=== PATIENT | female | born 1990 | race Caucasian/White ===

== ENCOUNTER 2020-06-18 01:03 | Emergency (ER) | payer OTHER ==
[2020-06-18] MEDS ORDERED: ASPIRIN 81 MG CHEWABLE TABLET ONE (02:01)
[2020-06-18] MEDS ORDERED: NA CHLORIDE 0.9% 500 ML ONE (02:01)
[2020-06-18] MEDS ORDERED: hydrOXYzine HCL 25 MG TAB ONE (02:01)
[2020-06-18 02:21] LABS: Absolute Lymphocytes (CBC) 2.3 K/uL (0.7-4.9); Basophils % 0.4 % (0-1.3); Hematocrit 42.1 % (36.0-45.0); Lymphocytes % 26.1 % (15.3-44.8); MPV 10.5 fL (7.6-11.3); RBC Red Blood Cell Count 4.53 M/uL (3.86-4.86)
[2020-06-18 02:34] LABS: ALT/SGPT 17 U/L (12-78); AST/SGOT 18 U/L (15-37); Albumin 3.8 g/dL (3.4-5.0); Alkaline Phosphatase 53 U/L (45-117); BUN Blood Urea Nitrogen 16 mg/dL (7-18); Bicarbonate 23 mmol/L (21-32); Bilirubin Direct 0.2 mg/dL (0-0.2); Bilirubin Total 0.6 mg/dL (0.2-1.0); Glucose Level 94 mg/dL (74-106); Magnesium 2.1 mg/dL (1.8-2.4); NT PRO-BNP 13 pg/mL (<125); Potassium 3.9 mmol/L (3.5-5.1); Protein, Total 7.3 g/dL (6.4-8.2); Sodium Level 138 mmol/L (136-145); Troponin (Emerg Dept Use Only) < 0.02 ng/mL (0.0-0.045)
--- NOTE | 2020-06-18 03:01 | EDPHYS ---
Physician Documentation [facility] Name: Jayda Avery Age: 29 yrs Sex: Female : 1990 Arrival Date: 06/18/2020 Time: 01:04 Bed 2 Private MD: ED Physician Osmany Traylor HPI: 06/18 01:40 This 29 yrs old Female presents to ER via Ambulatory with complaints of Chest kristin Pain. 01:40 The patient or guardian reports chest pain that is located primarily in the anterior kristin chest wall, left. The pain does not radiate. Associated signs and symptoms: Pertinent positives: palpitations, anxiety. The chest pain is described as aching. Duration: The patient or guardian reports a single episode, that is still ongoing, and unchanged. Modifying factors: The symptoms are alleviated by remaining still, the symptoms are aggravated by nothing. Severity of pain: At its worst the pain was very mild in the emergency department the pain is unchanged. The patient has not experienced similar symptoms in the past. 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 - Social history:: Smoking status: Patient denies any tobacco usage or history of. - Family history:: not pertinent. ROS: 01:40 Constitutional: Negative for fever, chills, and weight loss, Eyes: Negative for injury, kristin pain, redness, and discharge, ENT: Negative for injury, pain, and discharge, Neck: Negative for injury, pain, and swelling, Respiratory: Negative for shortness of breath, cough, wheezing, and pleuritic chest pain, Abdomen/GI: Negative for abdominal pain, nausea, vomiting, diarrhea, and constipation, Back: Negative for injury and pain, : Negative for injury, bleeding, discharge, and swelling, MS/Extremity: Negative for injury and deformity, Skin: Negative for injury, rash, and discoloration, Neuro: Negative for headache, weakness, numbness, tingling, and seizure, Psych: Negative for depression, anxiety, suicide ideation, homicidal ideation, and hallucinations, Allergy/Immunology: Negative for hives, rash, and allergies, Endocrine: Negative for neck swelling, polydipsia, polyuria, polyphagia, and marked weight changes, Hematologic/Lymphatic: Negative for swollen nodes, abnormal bleeding, and unusual bruising. 01:40 Cardiovascular: Positive for chest pain, of the chest. Exam: 01:40 Constitutional: This is a well developed, well nourished patient who is awake, alert, kristin and in no acute distress. Head/Face: Normocephalic, atraumatic. Eyes: Pupils equal round and reactive to light, extra-ocular motions intact. Lids and lashes normal. Conjunctiva and sclera are non-icteric and not injected. Cornea within normal limits. Periorbital areas with no swelling, redness, or edema. ENT: Nares patent. No nasal discharge, no septal abnormalities noted. Tympanic membranes are normal and external auditory canals are clear. Oropharynx with no redness, swelling, or masses, exudates, or evidence of obstruction, uvula midline. Mucous membranes moist. Neck: Trachea midline, no thyromegaly or masses palpated, and no cervical lymphadenopathy. Supple, full range of motion without nuchal rigidity, or vertebral point tenderness. No Meningismus. Chest/axilla: Normal chest wall appearance and motion. Nontender with no deformity. No lesions are appreciated. Cardiovascular: Regular rate and rhythm with a normal S1 and S2. No gallops, murmurs, or rubs. Normal PMI, no JVD. No pulse deficits. Respiratory: Lungs have equal breath sounds bilaterally, clear to auscultation and percussion. No rales, rhonchi or wheezes noted. No increased work of breathing, no retractions or nasal flaring. Abdomen/GI: Soft, non-tender, with normal bowel sounds. No distension or tympany. No guarding or rebound. No evidence of tenderness throughout. Back: No spinal tenderness. No costovertebral tenderness. Full range of motion. Skin: Warm, dry with normal turgor. Normal color with no rashes, no lesions, and no evidence of cellulitis. MS/ Extremity: Pulses equal, no cyanosis. Neurovascular intact. Full, normal range of motion. Neuro: Awake and alert, GCS 15, oriented to person, place, time, and situation. Cranial nerves II-XII grossly intact. Motor strength 5/5 in all extremities. Sensory grossly intact. Cerebellar exam normal. Normal gait. Psych: Awake, alert, with orientation to person, place and time. Behavior, mood, and affect are within normal limits. 01:40 Musculoskeletal/extremity: DVT Exam: No signs of deep vein thrombosis. no pain, no swelling, no tenderness, negative Homans' sign noted on exam, no appreciated bluish discoloration, no erythema, no increased warmth. 02:19 ECG was reviewed by the Attending Physician. kristin Vital Signs: 01:31 BP 131 / 85; Pulse 83; Resp 18; Temp 98.6; Pulse Ox 100% on R/A; Weight 92.99 kg; mg2 Height 5 ft. 4 in. (162.56 cm); 02:34 BP 122 / 75; Pulse 73; Resp 18; Pulse Ox 100% on R/A; mg2 01:31 Body Mass Index 35.19 (92.99 kg, 162.56 cm) mg2 MDM: 01:23 Patient medically screened. kristin 01:43 Differential diagnosis: abnormal EKG, anxiety, chest wall pain, costochondritis, kristin esophagitis, gastroesophageal reflux disease (GERD), pancreatitis, pleurisy, pulmonary embolus, stable angina, unstable angina. HEART Score: History: Slightly Suspicious (0), ECG: Normal (0), Age: < or = 45 years (0), Risk Factors: No Risk Factors Known (0), Troponin: < or = 1 x Normal Limit (0), Total Score = 0. The patient's deep vein thrombosis risk score was calculated as follows: Total Score: 0. This patient was found to be at low risk for a deep vein thrombosis by using the Well's assessment criteria. The patient's pulmonary embolism risk score was calculated as follows: Total Score: 3-6 points. This patient was found to be at moderate risk for a pulmonary embolism by using the Well's assessment criteria. INDRA Risk Score: TOTAL SCORE = 0. Data reviewed: vital signs, nurses notes, lab test result(s), EKG, radiologic studies, plain films. Data interpreted: compliance monitor: rate is 83 beats/min, Pulse oximetry: on room air is 100 %. Test interpretation: by ED physician or midlevel provider: ECG, plain radiologic studies. Counseling: I had a detailed discussion with the patient and/or guardian regarding: the historical points, exam findings, and any diagnostic results supporting the discharge/admit diagnosis, lab results, radiology results, the need for outpatient follow up, for definitive care, a test engineer, a family practitioner. 06/18 01:40 Order name: Basic Metabolic Panel; Complete Time: 02:[address] [facility] 06/18 01:40 Order name: CBC with Diff; Complete Time: 02:[address] [facility] 06/18 01:40 Order name: LFT's; Complete Time: 02:[address] [facility] 06/18 01:40 Order name: Magnesium; Complete Time: 02:[address] [facility] 06/18 01:40 Order name: NT PRO-BNP; Complete Time: 02:[address] [facility] 06/18 01:40 Order name: Troponin (emerg Dept Use Only); Complete Time: 02:[address] [facility] 06/18 01:40 Order name: XRAY Chest (1 view) 06/18 01:40 Order name: EKG; Complete Time: 01:[address] [facility] 06/18 01:40 Order name: D-Dimer; Complete Time: 02:[address] [facility] 06/18 03:05 Order name: Urine Dipstick--Ancillary (enter results) 06/18 03:05 Order name: Urine --Ancillary (enter results) 06/18 01:40 Order name: Cardiac monitoring; Complete Time: 01:[address] [facility] 06/18 01:40 Order name: EKG - Nurse/Tech; Complete Time: 01:[address] [facility] 06/18 01:40 Order name: IV Saline Lock; Complete Time: 01:[address] [facility] 06/18 01:40 Order name: Labs collected and sent; Complete Time: 01:[address] [facility] 06/18 01:40 Order name: O2 Per Protocol; Complete Time: 01:[address] [facility] 06/18 01:40 Order name: O2 Sat Monitoring; Complete Time: 01:[address] [facility] 06/18 01:40 Order name: Urine Dipstick-Ancillary (obtain specimen); Complete Time: 03:[address] [facility] 06/18 01:40 Order name: Urine Test (obtain specimen); Complete Time: 03:[address] [facility] EC:19 Rate is 83 beats/min. Rhythm is regular. QRS [place] is Normal. MA interval is normal. QRS kristin interval is normal. QT interval is normal. No Q waves. T waves are Normal. No ST changes noted. Clinical impression: Normal ECG and No evidence of ischemia. Interpreted by me. Reviewed by me. Administered Medications: 01:50 Drug: hydrOXYzine 25 mg Route: PO; ea 02:35 Follow up: Response: No adverse reaction mg2 01:51 Drug: NS 0.9% 500 ml Route: IV; Rate: bolus; Site: right forearm; ea 02:35 Follow up: Response: No adverse reaction; IV Status: Completed infusion; IV Intake: mg2 500ml 01:51 Drug: Aspirin Chewable Tablet 81 mg Route: PO; ea 02:35 Follow up: Response: No adverse reaction mg2 Disposition: 06/18/20 02:59 Discharged to Home. Impression: Other chest pain, Anxiety disorder, unspecified. - Condition is Stable. - Discharge Instructions: Panic Attacks, Nonspecific Chest Pain, Chest Wall Pain, Nonspecific Chest Pain, [id number], Panic Attacks, [id number], Aspirin and Your Heart. - Prescriptions for Hydroxyzine HCl 25 mg Oral Tablet - take 1 tablet by ORAL route every 6 hours As needed; 30 tablet. - Medication Reconciliation Form, Thank You Letter, Antibiotic Education, Prescription Opioid Use form. - Follow up: Private Physician; When: 2 - 3 days; Reason: Recheck today's complaints, Continuance of care, Re-evaluation by your physician. Follow up: Arturo Fish MD; When: 2 - 3 days; Reason: Recheck today's complaints, Re-evaluation by your physician. - Problem is new. - Symptoms have improved. Signatures: Dispatcher [employer] EDMS Robb Thurston RN RN sg Anderson, Corey, MD MD cha Antunez, Elena, RN RN ea Gardose, Michele, RN RN mg2 Corrections: (The following items were deleted from the chart) 03:14 02:59 06/18/2020 02:59 Discharged to Home. Impression: Other chest pain; Anxiety mg2 disorder, unspecified. Condition is Stable. Discharge Instructions: Panic Attacks, Nonspecific Chest Pain, Chest Wall Pain, Nonspecific Chest Pain, [id number], Panic Attacks, Egyu-no-Colc, Aspirin and Your Heart. Prescriptions for Hydroxyzine HCl 25 mg Oral Tablet - take 1 tablet by ORAL route every 6 hours As needed; 30 tablet. and Forms are Medication Reconciliation Form, Thank You Letter, Antibiotic Education, Prescription Opioid Use. Follow up: Private Physician; When: 2 - 3 days; Reason: Recheck today's complaints, Continuance of care, Re-evaluation by your physician. Follow up: Arturo Fish; When: 2 - 3 days; Reason: Recheck today's complaints, Re-evaluation by your physician. Problem is new. Symptoms have improved. kristin
--- NOTE | 2020-06-18 03:01 | ER ---
Nurse's Notes [facility] Name: Jayda Avery Age: 29 yrs Sex: Female : 1990 Arrival Date: 06/18/2020 Time: 01:04 Bed 2 Private MD: Diagnosis: Other chest pain;Anxiety disorder, unspecified Presentation: 06/18 01:24 Chief complaint: Patient states: Yesterday I went to see my PCP, because I was having sg some chest pain, well I got really anxious at the doctors office and then they said that things were fine. Tonight Im having that chest pain again and I cant tell if its from anxiety or if there is something else going on. Coronavirus screen: Client denies travel out of the [place] in the last 14 days. At this time, the client does not indicate any symptoms associated with coronavirus-19. Ebola Screen: Patient negative for fever greater than or equal to 101.5 degrees Fahrenheit, and additional compatible Ebola Virus Disease symptoms Patient denies exposure to infectious person. Patient denies travel to an Ebola-affected area in the 21 days before illness onset. No symptoms or risks identified at this time. Initial Sepsis Screen: Does the patient meet any 2 criteria? No. Patient's initial sepsis screen is negative. Does the patient have a suspected source of infection? No. Patient's initial sepsis screen is negative. Risk Assessment: Do you want to hurt yourself or someone else? Patient reports no desire to harm self or others. Onset of symptoms was June 18, 2020. Care prior to arrival: None. Transition of care: patient was not received from another setting of care. 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 - Social history:: Smoking status: Patient denies any tobacco usage or history of. - Family history:: not pertinent. Screenin:32 Abuse screen: Denies threats or abuse. Denies injuries from another. Nutritional mg2 screening: No deficits noted. Tuberculosis screening: No symptoms or risk factors identified. Fall Risk None identified. Assessment: 01:31 General: Appears in no apparent distress. comfortable, Behavior is calm, cooperative. mg2 Pain: Complains of pain in chest Pain does not radiate. Pain currently is 2 out of 10 on a pain scale. Quality of pain is described as aching, Pain began gradually. Neuro: Level of Consciousness is awake, alert, obeys commands, Oriented to person, place, time, situation. Cardiovascular: Capillary refill < 3 seconds Patient's skin is warm and dry. Respiratory: Airway is patent Respiratory effort is even, unlabored, Respiratory pattern is regular, symmetrical. GI: No signs and/or symptoms were reported involving the gastrointestinal system. : No signs and/or symptoms were reported regarding the genitourinary system. EENT: No signs and/or symptoms were reported regarding the EENT system. Derm: Skin is intact, is healthy with good turgor, Skin is pink, warm \T\ dry. normal. Musculoskeletal: Circulation, motion, and sensation intact. Capillary refill < 3 seconds. 02:34 Reassessment: Patient appears in no apparent distress at this time. Patient and/or mg2 family updated on plan of care and expected duration. Pain level reassessed. Patient is alert, oriented x 3, equal unlabored respirations, skin warm/dry/pink. Vital Signs: 01:31 BP 131 / 85; Pulse 83; Resp 18; Temp 98.6; Pulse Ox 100% on R/A; Weight 92.99 kg; mg2 Height 5 ft. 4 in. (162.56 cm); 02:34 BP 122 / 75; Pulse 73; Resp 18; Pulse Ox 100% on R/A; mg2 01:31 Body Mass Index 35.19 (92.99 kg, 162.56 cm) mg2 ED Course: 01:04 Patient arrived in ED. cl3 01:23 Osmany Traylor MD is Attending Physician. kristin 01:24 Mayur Lehman, TOM is Primary Nurse. mg2 01:24 Arm band placed on. sg 01:26 Triage completed. sg 01:32 Patient has correct armband on for positive identification. Placed in gown. Cardiac mg2 monitor on. Pulse ox on. NIBP on. Door closed. 01:33 No provider procedures requiring assistance completed. mg2 01:33 Patient maintains SpO2 saturation greater than 95% on room air. mg2 02:04 XRAY Chest (1 view) In Process Unspecified. EDMS 02:59 Arturo Fish MD is Referral Physician. kristin 03:13 IV discontinued, intact, bleeding controlled, No redness/swelling at site. Pressure mg2 dressing applied. Administered Medications: 01:50 Drug: hydrOXYzine 25 mg Route: PO; ea 02:35 Follow up: Response: No adverse reaction mg2 01:51 Drug: NS 0.9% 500 ml Route: IV; Rate: bolus; Site: right forearm; ea 02:35 Follow up: Response: No adverse reaction; IV Status: Completed infusion; IV Intake: mg2 500ml 01:51 Drug: Aspirin Chewable Tablet 81 mg Route: PO; ea 02:35 Follow up: Response: No adverse reaction mg2 Intake: 02:35 IV: 500ml; Total: 500ml. mg2 Outcome: 02:59 Discharge ordered by . kristin 03:14 Discharged to home ambulatory. mg2 03:14 Condition: stable 03:14 Discharge instructions given to patient, Instructed on discharge instructions, follow up and referral plans. Demonstrated understanding of instructions, follow-up care, medications, Prescriptions given X 1. 03:14 Patient left the ED. mg2 03:14 Condition: stable ea Signatures: Dispatcher [employer] EDMS Robb Thurston, Osmany Salazar RN, MD MD cha Antunez, Elena, RN Mayur Rdz ea, RN RN mg2 Lewis, Charde cl3
[2020-06-18 03:32] LABS: Urine Blood NEGATIVE (NEG); Urine Glucose NEGATIVE (NEG); Urine Protein NEGATIVE (NEG)
--- NOTE | 2020-06-18 08:52 | RAD REPORT ---
EXAM DESCRIPTION: RAD - Chest Single View - 06/18/2020 2:04 am CLINICAL HISTORY: CHEST PAIN Chest pain. COMPARISON: No comparisons FINDINGS: Portable technique limits examination quality. The lungs are grossly clear. The heart is normal in size. No displaced fractures. IMPRESSION: No acute intrathoracic process suspected.
== END 2020-06-18 03:14 | disposition home or self-care (01) ==
LOC: ER 01:03
DX: F41.9 Anxiety disorder, unspecified (principal)
CPT/HCPCS: 93005; 85025; 80048; 36415; 83735; 81025; 85379; 80076; 81003; 84484; 83880; 71045; 96360; 99285; J7040